=== PATIENT | male | born 1990 | race American Indian/Alaskan Native ===

== ENCOUNTER 2017-05-06 14:44 | Emergency (ER) | payer OTHER ==
[2017-05-06 14:45] VITALS: BMI 25.8
[2017-05-06 15:02] VITALS: BP 119/78; PULSE 94; RESP 20; TEMP 99.2; O2SAT 98
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
[2017-05-06] MEDS ORDERED: TDAP Vaccine 0.5 mL Syr IM ONE (15:34)
== END 2017-05-06 16:15 | disposition home or self-care (01) ==
LOC: H.ER 14:44
DX: T14.8 Other injury of unspecified body region (principal); W19.XXXA Unspecified fall, initial encounter; Y92.410 Unspecified street and highway as the place of occurrence of the external cause